=== PATIENT | male | born 1990 | race Caucasian/White ===

== ENCOUNTER 2018-12-08 19:14 | Emergency (ER) | payer OTHER, SELFPAY ==
[2018-12-08 19:15] VITALS: BP 120/74; PULSE 89; RESP 18; TEMP 36.4; O2SAT 98; BMI 21.8
--- NOTE | 2018-12-08 19:31 | ED.VIS.GEN ---
History of Present Illness Chief Complaint: Bite Narrative: 28-year-old male was asleep in his trailer and felt something bite his left calf. He woke up but he did not see what it was. His concern is that perhaps it was a spider. He has noticed spiders as well as other insects inside his trailer before. He denies abdominal pain but has noticed redness and swelling around the bite site and is concerned that it is getting infected. This happened a few hours ago. He has no fever or systemic symptoms. Past Medical History - Allergies and Home Meds Allergies/Adverse Reactions: Allergies No Known Allergies Allergy (Verified 12/08/18 19:14) Primary Care Physician: NOT,DEFINED [Primary Care Provider] - Prior records reviewed: Yes Review of Systems All systems negative except as indicated General: Denies: Chills, Fever, Sweats Eyes: Denies: Visual changes - bilaterally, Diplopia ENT: Denies: Rhinorrhea, Sore throat Cardiovascular: Denies: Chest pain, Palpitations Respiratory: Denies: Dyspnea, Cough, Dyspnea on exertion Gastrointestinal: Denies: Abdominal pain, Nausea, Vomiting, Diarrhea, Melena, Hematochezia Genitourinary: Denies: Dysuria, Hematuria, Frequency Musculoskeletal: Denies: Back pain, Extremity Pain Skin: Reports: Rash. Denies: Wounds Neurological: Denies: Headache, Weakness, Numbness Physical Exam Vital Signs/Narrative: Vital Signs Temp Pulse Resp BP Pulse Ox 12/08/18 19:15 97.5 F L 89 18 120/74 98 General: Well nourished, Well developed, No Acute Distress Head: Normocephalic, Atraumatic Eyes: Perrl, EOMI ENT: Moist mucous membranes, No rhinorrhea Neck: Supple, Nontender Cardiovascular: Regular rate, Regular rhythm, No murmurs Respiratory: No distress, CTA bilaterally, Chest nontender Abdomen: Soft, Nontender, Nondistended, Normal bowel sounds Back: Nontender, Normal Inspection Extremities: Nontender, No edema Skin: Normal color, Rash, - - There is 3 cm of erythema/warmth in the mid calf medial surface. No fluctuance. Strong distal pulse. Neurological: Alert, Oriented x3, Cranial nerves II-XII grossly intact, Normal Strength, Normal Sensation Psychological: Normal affect, Normal Mood Diagnostic/Tx/Re-eval - Medical Decision Making There is no evidence of abscess. Difficult to say if this was truly a bite or not. We discussed options and he would prefer to start antibiotics because he is concerned about secondary infection. I feel this is reasonable. I also instructed him on using warm compresses, a topical anti-itch ointment, and elevating his leg. He will come back for a wound check if this gets worse. ED Disposition - Plan for ED Patient: Disposition: Home or Assisted Living Diagnosis: Insect bite of left leg Instructions: SPIDER BITE, Non-Poisonous Prescriptions: Cephalexin [Keflex] 500 mg PO Q6 #28 capsule Referrals: NOT,DEFINED [Primary Care Provider] -
--- NOTE | 2018-12-08 19:33 | ED.RN ---
THERE IS A DARK WARM REDDENED AREA ON THE CALF SURROUNDED BY A LARGE SWOLLEN PINK AREA, PINK STREAKS HEADED UP TO THE KNEE. PT STATES IT'S TINGLING AND WHEN HE STANDS UP IT'S A 5/10 PAIN AND UNABLE TO BEAR FULL WEIGHT, PER PT.
[2018-12-08] MEDS: Cephalexin 250 MG Capsule 500 MG PO (19:44)
== END 2018-12-08 19:57 | disposition home or self-care (01) ==
LOC: ED 19:54
PROVIDERS: Emergency Provider Emergency Medicine
DX: S80.862A Insect bite (nonvenomous), left lower leg, initial encounter (principal); W57.XXXA Bitten or stung by nonvenomous insect and other nonvenomous arthropods, initial encounter; Y93.84 Activity, sleeping; Y92.029 Unspecified place in mobile home as the place of occurrence of the external cause
CPT/HCPCS: 99283

== ENCOUNTER 2023-02-14 21:46 | Emergency (ER) | payer OTHER, SELFPAY ==
[2023-02-14 21:47] VITALS: BP 151/96; PULSE 52; RESP 16; TEMP 36.4; O2SAT 100; BMI 20.8
--- NOTE | 2023-02-14 21:59 | ED.VIS.DENTA ---
HPI History of Present Illness Chief Complaint: Dental Narrative Narrative: Presents with right upper dental pain since last night. No fever chills or facial swelling. PFSH PFSH Home Medications cephalexin 500 mg capsule 500 mg PO Q6 #28 caps 12/08/18 [Rx Last Taken Unknown] multivitamin 1 ea PO DAILY 12/08/18 [History Last Taken Unknown] penicillin V potassium 500 mg tablet 500 mg PO 4X/DAY #40 tabs 02/14/23 [Rx Last Taken Unknown] Allergy/AdvReac Type Severity Reaction Status Date / Time No Known Allergies Allergy Verified 02/14/23 21:48 Social History Smoking Status: Current some day smoker ROS ROS ED ROS Narrative Past medical history: Reviewed Medications: Reviewed Social history: Noncontributory Review of systems: All systems negative except as indicated General: No fever Eyes: No visual changes ENT: Dental pain. Otherwise normal voice no difficulty swallowing Neck: No neck pain EXAM Physical Exam Narrative Exam Narrative: Physical exam General: Well nourished, Well developed, No Acute Distress Head: Normocephalic, Atraumatic Eyes: Conjunctiva not pale ENT: Right upper second molar tenderness. No periapical abscess. No facial swelling. Normal soft palate. Neck: Supple, Nontender, No lymphadenopathy Const Vital Signs: 02/14/23 21:47 Temperature 97.6 F L Temperature Source Temporal Pulse Rate 52 L Respiratory Rate 16 Blood Pressure 151/96 H Blood Pressure Mean 114 Pulse Ox 100 Oxygen Delivery Method Room Air MDM MDM MDM Narrative Medical decision making narrative: I do not believe the patient needs an orthopantogram or any kind imaging of the face. He has odontalgia and he likely has an infection. I will treat him with antibiotics and analgesics in the ED he is to follow-up with dentistry. Discharge Plan Triage Chief Complaint: Dental ED Provider: Brenton Monreal Dx/Rx/DC Orders Clinical Impression: Odontalgia, Dental infection Prescriptions: New penicillin V potassium 500 mg tablet 500 mg PO 4X/DAY Qty: 40 0RF No Action multivitamin 1 EACH tablet 1 ea PO DAILY cephalexin 500 MG capsule 500 mg PO Q6 Qty: 28 0RF Primary Care Provider: Care Physician,No Primary Referrals: Care Physician,No Primary [Primary Care Provider] - Disposition Disposition: Home, Self Care
[2023-02-14] MEDS: Oxycodone/Apap 5/325 Tablet PO (22:12)
[2023-02-14] MEDS: Penicillin Vk 250 MG Tablet 500 MG PO (22:12)
== END 2023-02-14 22:19 | disposition home or self-care (01) ==
LOC: ED 22:17
PROVIDERS: Emergency Provider Emergency Medicine; Visit Provider Emergency Medicine
DX: K08.89 Other specified disorders of teeth and supporting structures (principal); K04.7 Periapical abscess without sinus; F17.200 Nicotine dependence, unspecified, uncomplicated
CPT/HCPCS: 99283